=== PATIENT | female | born 1985 | race Caucasian/White ===

== ENCOUNTER 2020-04-29 15:34 | Emergency (ER) | payer OTHER ==
--- NOTE | 2020-04-29 15:48 | EDM.PDOC ---
ED HPI GENERAL MEDICAL PROBLEM - General Chief Complaint: SOCK IRONER Problem Stated Complaint: POSSIBLE KIDNEY STONES Time Seen by Provider: 04/29/20 15:39 Source of Information: Reports: Patient, Other (Concha Acuña) - History of Present Illness INITIAL COMMENTS - FREE TEXT/NARRATIVE: HISTORY AND PHYSICAL: History of present illness: Patient is a G1, P0 35-year-old female who resents emergency room today with concern of possible kidney stone that was sent from her SOCK IRONER's office for further evaluation. I did receive a call from patients OBGYN/Human Factors Scientist, Lluvia Acuña, for concern of possible left sided kidney stone. Patient states she is approximately 22 weeks in gestation and started having left-sided flank pain that began at 6 this morning. Patient states that she has had a history of kidney stones in the past and her symptoms today do feel similar to this. Patient states that she has not vomited but she has not been able to eat or drink since 6 this morning due to nausea. Patient's women's health provider was able to get patient an ultrasound before coming over to the emergency room for further evaluation. Lluvia Acuña states baby did have 150s FHT and "baby looked good" and she was not concerned for premature labor. Patient states that she has not been able to take anything for her symptoms due to nausea but she did try to take Tylenol earlier without relief of symptoms. Patient denies any other associated symptoms or any other symptoms or concerns. Patient denies fever, chills, chest pain, shortness of breath, or cough. Denies headache, neck stiff ness, change in vision, syncope, or near syncope. Denies vomiting, abdominal pain, diarrhea, constipation, or dysuria. Has not noted any blood in urine or stool. Patient has been eating and drinking appropriately. Review of systems: As per history of present illness and below otherwise all systems reviewed and negative. Past medical history: As per history of present illness and as reviewed below otherwise noncont ributory. Surgical history: As per history of present illness and as reviewed below otherwise noncontributory. Social history: See social history for further information Family history: As per history of present illness and as reviewed below otherwise noncontributory. Physical exam: General: Patient is alert, oriented, and in no acute distress. Patient sitting comfortably on exam table. HEENT: Atraumatic, normocephalic, pupils equal and reactive bilaterally, negative for conjunctival pallor or scleral icterus, mucous membranes moist, TMs normal bilaterally, throat clear, neck supple, nontender, trachea midline. No drooling or trismus noted. No meningeal signs. No hot potato voice noted. Lungs: Clear to auscultation, breath sounds equal bilaterally, chest nontender. Heart: S1S2, regular rate and rhythm without overt murmur Abdomen: Soft, nondistended, nontender. Negative for masses or hepatosplenomegaly. Positive for costovertebral tenderness of the left. Pelvis: Stable nontender. Genitourinary: Deferred. Rectal: Deferred. Skin: Intact, warm, dry. No lesions or rashes noted. Extremities: Atraumatic, negative for cords or calf pain. Neurovascular unremarkable. Neuro: Awake, alert, oriented. Cranial nerves II through XII unremarkable. Cerebellum unremarkable. Motor and sensory unremarkable throughout. Exam nonfocal. Notes: FHT at bedside 145. Upon reevaluation of patient she is much more comfortable following therapeutics today. She has not had any episodes of vomiting today in the emergency room. Strict return precautions thoroughly discussed with patient. Discussed the importance for follow up with a primary care provider / womens health provider. Voices understanding and is agreeable to plan of care. Denies any further questions or concerns at this time. Diagnostics: CBC, CMP, UA Therapeutics: NS, Zofran, Morphine Prescription: [place] 5/325 (#3), Zofran, Macrobid Impression: Ureterolithiasis, left Asymptomatic bacteruria during Plan: 1. Take medication as prescribed. You can also use Tylenol instructed for pain and discomfort as this is used safe to use in . 2. Follow-up with your primary care provider / women health provider as discussed. Return to the ED as needed and as discussed. Definitive disposition and diagnosis as appropriate pending reevaluation and review of above. L flank Pain Score (Numeric/FACES): 10 - Related Data Allergies Allergy/AdvReac Type Severity Reaction Status Date / Time Penicillins Allergy Hives Verified 04/29/20 15:46 Home Meds: Home Meds Acetaminophen/HYDROcodone [[place] 325-5 MG] 1 tab PO Q6H #3 tablet 04/29/20 [Rx] Nitrofurantoin Monohyd/M-Cryst [Macrobid 100 mg Capsule] 100 mg PO BID 5 Days #10 capsule 04/29/20 [Rx] Ondansetron [Zofran ODT] 4 mg PO Q6H PRN #8 tab.dis 04/29/20 [Rx] Pnv No.95/Ferrous Fum/Folic AC [ Caplet] 1 cap PO DAILY 04/29/20 [History] ED ROS GENERAL - Review of Systems Review Of Systems: Comprehensive ROS is negative, except as noted in HPI. ED EXAM, GENERAL - Physical Exam Exam: See Below (see dictation) Course - Vital Signs Last Recorded V/S: Last Vital Signs Temp 96.8 F L 04/29/20 15:48 Pulse 90 04/29/20 15:48 Resp 18 04/29/20 15:48 BP 122/70 04/29/20 15:48 Pulse Ox 97 04/29/20 15:48 - Orders/Labs/Meds Orders: Active Orders 24 hr Category Date Time Status Sodium Chloride 0.9% [Saline Flush] Med 04/29/20 15:39 Active 10 ml FLUSH ASDIRECTED PRN Sodium Chloride 0.9% [Saline Flush] Med 04/29/20 15:39 Active 2.5 ml FLUSH ASDIRECTED PRN Saline Lock Insert [OM.PC] Stat Oth 04/29/20 15:39 Ordered Medication Orders Sodium Chloride (Saline Flush) 10 ml FLUSH ASDIRECTED PRN PRN Reason: Keep Vein Open Last Admin: 04/29/20 15:57 Dose: 10 ml Documented by: LEE Sodium Chloride (Saline Flush) 2.5 ml FLUSH ASDIRECTED PRN PRN Reason: Keep Vein Open Last Admin: 04/29/20 15:57 Dose: 2.5 ml Documented by: LEE Labs: Laboratory Tests 04/29/20 04/29/20 04/29/20 Range/Units 15:39 15:42 15:53 WBC 19.38 H (4.0-11.0) K/uL RBC 3.69 L (4.30-5.90) M/uL Hgb 11.6 L (12.0-16.0) g/dL Hct 34.4 L (36.0-46.0) % MCV 93.2 (80.0-98.0) fL MCH 31.4 (27.0-32.0) pg MCHC 33.7 (31.0-37.0) g/dL RDW Std Deviation 42.5 (28.0-62.0) fl RDW Coeff of [place] 13 (11.0-15.0) % Plt Count 229 (150-400) K/uL MPV 11.90 (7.40-12.00) fL Neut % (Auto) 87.5 H (48.0-80.0) % Lymph % (Auto) 7.0 L (16.0-40.0) % [place] % (Auto) 5.3 (0.0-15.0) % Eos % (Auto) 0.1 (0.0-7.0) % Baso % (Auto) 0.1 (0.0-1.5) % Neut # (Auto) 17.0 H (1.4-5.7) K/uL Lymph # (Auto) 1.4 (0.6-2.4) K/uL [place] # (Auto) 1.0 H (0.0-0.8) K/uL Eos # (Auto) 0.0 (0.0-0.7) K/uL Baso # (Auto) 0.0 (0.0-0.1) K/uL Nucleated RBC % 0.0 /100WBC Nucleated RBCs # 0 K/uL Lactate (0.20-2.00) mmol/L Sodium 134 L (136-145) mmol/L Potassium 3.6 (3.5-5.1) mmol/L Chloride 101 (98-107) mmol/L Carbon Dioxide 24.0 (21.0-32.0) mmol/L BUN 7 (7.0-18.0) mg/dL Creatinine 0.7 (0.6-1.0) mg/dL Est Cr Clr Drug Dosing 92.79 mL/min Estimated GFR (MDRD) > 60.0 ml/min Glucose 105 (74-106) mg/dL Calcium 9.3 (8.5-10.1) mg/dL Total Bilirubin 0.2 (0.2-1.0) mg/dL AST 26 (15-37) IU/L ALT 12 L (14-63) IU/L Alkaline Phosphatase 75 (46-116) U/L Total Protein 6.6 (6.4-8.2) g/dL Albumin 3.0 L (3.4-5.0) g/dL Globulin 3.6 (2.6-4.0) g/dL Albumin/Globulin Ratio 0.8 L (0.9-1.6) Urine Color YELLOW Urine Appearance HAZY Urine pH 7.0 (5.0-8.0) Ur Specific [place] 1.010 (1.001-1.035) Urine Protein NEGATIVE (NEGATIVE) mg/dL Urine Glucose (UA) NEGATIVE (NEGATIVE) mg/dL Urine Ketones TRACE H (NEGATIVE) mg/dL Urine Occult Blood TRACE-INTACT H (NEGATIVE) Urine Nitrite NEGATIVE (NEGATIVE) Urine Bilirubin NEGATIVE (NEGATIVE) Urine Urobilinogen 0.2 (<2.0) EU/dL Ur Leukocyte Esterase NEGATIVE (NEGATIVE) Urine RBC 2-6 (0-2/HPF) Urine WBC 0-2 (0-5/HPF) Ur Epithelial Cells RARE (NONE-FEW) Urine Bacteria FEW (NEGATIVE) 04/29/20 Range/Units 16:28 WBC (4.0-11.0) K/uL RBC (4.30-5.90) M/uL Hgb (12.0-16.0) g/dL Hct (36.0-46.0) % MCV (80.0-98.0) fL MCH (27.0-32.0) pg MCHC (31.0-37.0) g/dL RDW Std Deviation (28.0-62.0) fl RDW Coeff of [place] (11.0-15.0) % Plt Count (150-400) K/uL MPV (7.40-12.00) fL Neut % (Auto) (48.0-80.0) % Lymph % (Auto) (16.0-40.0) % [place] % (Auto) (0.0-15.0) % Eos % (Auto) (0.0-7.0) % Baso % (Auto) (0.0-1.5) % Neut # (Auto) (1.4-5.7) K/uL Lymph # (Auto) (0.6-2.4) K/uL [place] # (Auto) (0.0-0.8) K/uL Eos # (Auto) (0.0-0.7) K/uL Baso # (Auto) (0.0-0.1) K/uL Nucleated RBC % /100WBC Nucleated RBCs # K/uL Lactate 0.6 (0.20-2.00) mmol/L Sodium (136-145) mmol/L Potassium (3.5-5.1) mmol/L Chloride (98-107) mmol/L Carbon Dioxide (21.0-32.0) mmol/L BUN (7.0-18.0) mg/dL Creatinine (0.6-1.0) mg/dL Est Cr Clr Drug Dosing mL/min Estimated GFR (MDRD) ml/min Glucose (74-106) mg/dL Calcium (8.5-10.1) mg/dL Total Bilirubin (0.2-1.0) mg/dL AST (15-37) IU/L ALT (14-63) IU/L Alkaline Phosphatase (46-116) U/L Total Protein (6.4-8.2) g/dL Albumin (3.4-5.0) g/dL Globulin (2.6-4.0) g/dL Albumin/Globulin Ratio (0.9-1.6) Urine Color Urine Appearance Urine pH (5.0-8.0) Ur Specific [place] (1.001-1.035) Urine Protein (NEGATIVE) mg/dL Urine Glucose (UA) (NEGATIVE) mg/dL Urine Ketones (NEGATIVE) mg/dL Urine Occult Blood (NEGATIVE) Urine Nitrite (NEGATIVE) Urine Bilirubin (NEGATIVE) Urine Urobilinogen (<2.0) EU/dL Ur Leukocyte Esterase (NEGATIVE) Urine RBC (0-2/HPF) Urine WBC (0-5/HPF) Ur Epithelial Cells (NONE-FEW) Urine Bacteria (NEGATIVE) Meds: Medications Generic Name Dose Route Start Last Admin Trade Name Freq PRN Reason Stop Dose Admin Sodium Chloride 10 ml 04/29/20 15:39 04/29/20 15:57 Saline Flush FLUSH 10 ml ASDIRECTED PRN Administration Keep Vein Open Sodium Chloride 2.5 ml 04/29/20 15:39 04/29/20 15:57 Saline Flush FLUSH 2.5 ml ASDIRECTED PRN Administration Keep Vein Open Discontinued Medications Generic Name Dose Route Start Last Admin Trade Name Freq PRN Reason Stop Dose Admin Sodium Chloride 1,000 mls @ 999 mls/hr 04/29/20 15:48 04/29/20 15:55 Normal Saline IV 04/29/20 16:48 999 mls/hr STAT ONE Administration Morphine Sulfate 4 mg 04/29/20 15:40 04/29/20 15:57 Morphine IVPUSH 04/29/20 15:41 4 mg ONETIME ONE Administration Ondansetron HCl 4 mg 04/29/20 15:39 04/29/20 15:56 Zofran IVPUSH 04/29/20 15:40 4 mg ONETIME ONE Administration Departure - Departure Time of Disposition: 17:17 Disposition: Home, Self-Care 01 Clinical Impression: Ureterolithiasis, Asymptomatic bacteriuria during - Discharge Information Prescriptions: Nitrofurantoin Monohyd/M-Cryst [Macrobid 100 mg Capsule] 100 mg PO BID 5 Days #10 capsule Acetaminophen/HYDROcodone [[place] 325-5 MG] 1 tab PO Q6H #3 tablet Ondansetron [Zofran ODT] 4 mg PO Q6H PRN #8 tab.dis PRN Reason: Nausea/Vomiting Instructions: Kidney Stones, [id number] Referrals: PCP,None [Primary Care Provider] - Forms: ED Department Discharge Additional Instructions: The following information is given to patients seen in the emergency department who are being discharged to home. This information is to outline your options for follow-up care. We provide all patients seen in our emergency department with a follow-up referral. The need for follow-up, as well as the timing and circumstances, are variable depending upon the specifics of your emergency department visit. If you don't have a primary care physician on staff, we will provide you with a referral. We always advise you to contact your personal physician following an emergency department visit to inform them of the circumstance of the visit and for follow-up with them and/or the need for any referrals to a consulting specialist. The emergency department will also refer you to a specialist when appropriate. This referral assures that you have the opportunity for follow-up care with a specialist. All of these measure are taken in an effort to provide you with optimal care, which includes your follow-up. Under all circumstances we always encourage you to contact your private physician who remains a resource for coordinating your care. When calling for follow-up care, please make the office aware that this follow-up is from your recent emergency room visit. If for any reason you are refused follow-up, please contact the [facility] Emergency Department at and asked to speak to the emergency department charge nurse. [facility] [address] [place] [address] [facility] [address] [place] [id number] 1. Take medication as prescribed. You can also use Tylenol instructed for pain and discomfort as this is used safe to use in . 2. Follow-up with your primary care provider / women health provider as discussed. Return to the ED as needed and as discussed. Sepsis Event Note (ED) - Focused Exam Vital Signs: Vital Signs Temp Pulse Resp BP Pulse Ox 04/29/20 15:48 96.8 F L 90 18 122/70 97 - My Orders Last 24 Hours: My Active Orders 04/29/20 15:39 Sodium Chloride 0.9% [Saline Flush] 10 ml FLUSH ASDIRECTED PRN Sodium Chloride 0.9% [Saline Flush] 2.5 ml FLUSH ASDIRECTED PRN Saline Lock Insert [OM.PC] Stat - Assessment/Plan Last 24 Hours: My Active Orders 04/29/20 15:39 Sodium Chloride 0.9% [Saline Flush] 10 ml FLUSH ASDIRECTED PRN Sodium Chloride 0.9% [Saline Flush] 2.5 ml FLUSH ASDIRECTED PRN Saline Lock Insert [OM.PC] Stat
[2020-04-29] MEDS: Sodium Chloride 0.9% 1,000 ML IV ONE (15:55)
[2020-04-29] MEDS: Ondansetron 4 MG/2 ML SDV IVPUSH ONE (15:56)
[2020-04-29] MEDS: Sodium Chloride 0.9% 2.5 ML Syringe FLUSH PRN (15:57)
[2020-04-29] MEDS: Morphine 4 MG/ML Syringe IVPUSH ONE (15:57)
[2020-04-29] MEDS: Sodium Chloride 0.9% 10 ML Syringe FLUSH PRN (15:57)
[2020-04-29 16:25] LABS: BLOOD UREA NITROGEN,BUN 7 mg/dL (7.0-18.0); CHLORIDE,CL 101 mmol/L (98-107); GLUCOSE RANDOM 105 mg/dL (74-106); POTASSIUM,K 3.6 mmol/L (3.5-5.1); SODIUM,NA 134 mmol/L (136-145)
== END 2020-04-29 17:30 | disposition home or self-care (01) ==
LOC: MW.ED 15:34
DX: O99.891 Other specified diseases and conditions complicating pregnancy (principal); N20.1 Calculus of ureter; R82.71 Bacteriuria; Z3A.22 22 weeks gestation of pregnancy; Z88.0 Allergy status to penicillin
CPT/HCPCS: 36415; 80053; 81001; 83605; 85025; 96374; 96375; 99283; 99284-25; J2270; J2405; J7030

== ENCOUNTER 2020-08-23 10:23 | Observation (INO) | payer MEDICAID, OTHER ==
[2020-08-23] MEDS ORDERED: Nalbuphine 10 MG/1 ML Vial IVPUSH PRN (10:51)
[2020-08-23] MEDS ORDERED: Misoprostol 200 MCG Tab PO PRN (10:51)
[2020-08-23] MEDS ORDERED: Sodium Chloride 0.9% 10 ML SDV IV PRN (10:51)
[2020-08-23] MEDS ORDERED: Butorphanol 1 MG/ML SDV IVPUSH PRN (10:51)
[2020-08-23] MEDS ORDERED: Water For Irrigation,Sterile 1,000 ML Container IRR PRN (10:51)
[2020-08-23] MEDS ORDERED: Sodium Chloride 0.9% 10 ML Syringe FLUSH PRN (10:51)
[2020-08-23] MEDS ORDERED: Lidocaine 1% 50 ML MDV INJECT PRN (10:51)
[2020-08-23] MEDS ORDERED: Sodium Chloride 0.9% 2.5 ML Syringe FLUSH PRN (10:51)
[2020-08-23] MEDS ORDERED: Tranexamic Acid 1,000 MG in Sodium Chloride 0.9% 100 ML IV PRN (10:51)
[2020-08-23] MEDS ORDERED: Carboprost Tromethamine 250 MCG/1 ML Amp IM PRN (10:51)
[2020-08-23] MEDS ORDERED: Methylergonovine 0.2 MG/1 ML Amp IM PRN (10:51)
[2020-08-23] MEDS ORDERED: Terbutaline 1 MG/ML SDV SUBCUT PRN (10:51)
[2020-08-23] MEDS ORDERED: Lactated Ringers 1,000 ML IV SCH (11:00)
[2020-08-23] MEDS ORDERED: Oxytocin/0.9 % Sodium Chloride 30 UNIT/500 ML BAG IV SCH ×2 (11:00)
[2020-08-23] MEDS ORDERED: Misoprostol 25 MCG (1/4 of 100 MCG) Tab VAG PRN ×2 (11:30→15:30)
[2020-08-23] MEDS ORDERED: Misoprostol 25 MCG (1/4 of 100 MCG) Tab PO PRN ×2 (11:30→15:30)
--- NOTE | 2020-08-23 12:47 | PCM.LDHP ---
L&D History of Present Illness - General Date of Service: 08/23/20 Admit Problem/Dx: Patient Status Order with Admit Dx/Problem 08/23/20 10:51 Patient Status [ADT] Routine Admission Diagnosis/Problem Admission Diagnosis/Problem 08/23/20 12:32 at 38 6/7 weeks (SHADI: 08/31/20 by early ultrasound) presenting to L&D from clinic for induction of labor with progressively increasing BPs (150/100 in office this AM) and reports of vision changes (diplopia and "floaters"). B+, Rubella immune, GBS negative. notable for uterine size date discrepancy (fundal height < dates); however, consistent equal growth has been demonstrated and the most recent growth ultrasound on 08/18/20 noted EFW 3087 (25th percentile). VE in-office noted cervix was long, thick, and closed; vertex by Taj's. 08/23/20 12:48 Source of Information: Patient History Limitations: Reports: No Limitations - Related Data Allergies/Adverse Reactions: Allergies Allergy/AdvReac Type Severity Reaction Status Date / Time Penicillins Allergy Hives Verified 04/29/20 15:46 Home Medications: Home Meds Acetaminophen/HYDROcodone [[facility] 325-5 MG] 1 tab PO Q6H #3 tablet 04/29/20 [Rx] Nitrofurantoin Monohyd/M-Cryst [Macrobid 100 mg Capsule] 100 mg PO BID 5 Days #10 capsule 04/29/20 [Rx] Ondansetron [Zofran ODT] 4 mg PO Q6H PRN #8 tab.dis 04/29/20 [Rx] Pnv No.95/Ferrous Fum/Folic AC [ Caplet] 1 cap PO DAILY 04/29/20 [History] Past Medical History - Infectious Disease History Infectious Disease History: Reports: Chicken Pox - Past Surgical History HEENT Surgical History: Reports: Naso-Sinus Surgery Social & Family History - Family History Family Medical History: No Pertinent Family History - Caffeine Use Caffeine Use: Reports: Tea H&P Review of Systems - Review of Systems: Review Of Systems: See Below General: Reports: No Symptoms HEENT: Reports: No Symptoms Pulmonary: Reports: No Symptoms Cardiovascular: Reports: No Symptoms Gastrointestinal: Reports: No Symptoms Genitourinary: Reports: No Symptoms Musculoskeletal: Reports: No Symptoms Skin: Reports: No Symptoms Psychiatric: Reports: No Symptoms Neurological: Reports: No Symptoms Hematologic/Lymphatic: Reports: No Symptoms Immunologic: Reports: No Symptoms L&D Exam - Exam Exam: See Below - OB Specific Heart Tones: Present - Watts Score Watts Score Cervix Position: Posterior Watts Score Consistency: Firm Watts Score Effacement: 0-30% Watts Score Dilation: Closed Watts Score Infant's Station: -3 Watts Score Total: 0 - Exam General: Alert, Oriented, Cooperative Neck: Carotid Bruit Cardiovascular: Regular Rate, Regular Rhythm GI/Abdominal Exam: Soft, Non-Tender Rectal Exam: Deferred Genitourinary: Deferred Back Exam: Normal Inspection, Full Range of Motion Extremities: Normal Inspection, Normal Range of Motion, Non-Tender, Normal Capil arnold Refill Skin: Warm, Dry, Intact Neurological: Strength Equal Bilateral, Normal Gait, Normal Speech, Normal Tone, Sensation Intact Psychiatric: Alert, Normal Affect, Normal Mood - Patient Data Lab Results Last 24 hrs: Laboratory Results - last 24 hr 08/23/20 08/23/20 Range/Units 10:15 10:15 Urine Color YELLOW Urine Appearance CLEAR Urine pH 7.0 (5.0-8.0) Ur Specific [place] 1.010 (1.001-1.035) Urine Protein NEGATIVE (NEGATIVE) mg/dL Urine Glucose (UA) NEGATIVE (NEGATIVE) mg/dL Urine Ketones NEGATIVE (NEGATIVE) mg/dL Urine Occult Blood NEGATIVE (NEGATIVE) Urine Nitrite NEGATIVE (NEGATIVE) Urine Bilirubin NEGATIVE (NEGATIVE) Urine Urobilinogen 0.2 (<2.0) EU/dL Ur Leukocyte Esterase NEGATIVE (NEGATIVE) Urine RBC 0-2 (0-2/HPF) Urine WBC 0-2 (0-5/HPF) Ur Epithelial Cells FEW (NONE-FEW) Urine Bacteria FEW (NEGATIVE) Urine Mucus LIGHT (NONE-MOD) SARS-CoV-2 RNA (TAMMY) NEGATIVE (NEGATIVE) - Problem List (1) Advanced maternal age during , antepartum SNOMED Code(s): 305564251 ICD Code: [id number] - Status: Acute Priority: High Current Visit: Yes (2) Supervision of normal IUP (intrauterine ) in primigravida SNOMED Code(s): 62032119, 899970828, 001158585, 440621921 ICD Code: Z34.00 - ENCNTR FOR SUPRVSN OF NORMAL FIRST , UNSP TRIMESTER Status: Acute Priority: High Current Visit: Yes Qualifiers: Trimester: third trimester Qualified Code(s): Z34.03 - Encounter for supervision of normal first , third trimester Problem List Initiated/Reviewed/Updated: Yes Orders Last 24hrs: Active Orders 24 hr Category Date Time Status Patient Status [ADT] Routine ADT 08/23/20 10:51 Active Bedrest Bathroom Privileges [RC] ASDIRECTED Care 08/23/20 10:51 Active Bedrest [RC] ASDIRECTED Care 08/23/20 10:51 Active Communication Order [RC] ASDIRECTED Care 08/23/20 10:51 Active Communication Order [RC] ASDIRECTED Care 08/23/20 10:51 Active Communication Order [RC] ASDIRECTED Care 08/23/20 10:51 Active Communication Order [RC] PRN Care 08/23/20 10:51 Active Communication Order [RC] PRN Care 08/23/20 10:51 Active Equipment to Bedside [RC] PRN Care 08/23/20 10:51 Active Heart Tones [RC] ASDIRECTED Care 08/23/20 10:52 Active Heart Tones [RC] CONTINUOUS Care 08/23/20 10:51 Active Non Stress Test [RC] PER UNIT ROUTINE Care 08/23/20 10:51 Active Height and Weight [RC] DAILY Care 08/23/20 10:51 Active Intake and Output [RC] QSHIFT Care 08/23/20 10:51 Active May Shower [RC] ASDIRECTED Care 08/23/20 10:51 Active Notify Provider Status Change [RC] ASDIRECTED Care 08/23/20 10:55 Active Notify Provider [RC] PRN Care 08/23/20 10:51 Active Notify Provider [RC] PRN Care 08/23/20 10:51 Active Notify Provider [RC] PRN Care 08/23/20 10:51 Active Notify Provider [RC] PRN Care 08/23/20 10:51 Active Notify Provider [RC] STAT Care 08/23/20 10:51 Active Oxygen Therapy [RC] ASDIRECTED Care 08/23/20 10:51 Active Oxygen Therapy [RC] PRN Care 08/23/20 10:51 Active Peripheral IV Care [RC] PRN Care 08/23/20 10:51 Active Up ad Klaudia [RC] ASDIRECTED Care 08/23/20 10:51 Active Vaginal Exam [RC] PRN Care 08/23/20 10:51 Active Vaginal Exam [RC] PRN Care 08/23/20 10:51 Active Vital Signs [RC] ASDIRECTED Care 08/23/20 10:51 Active Vital Signs [RC] PER UNIT ROUTINE Care 08/23/20 10:51 Active Vital Signs [RC] PER UNIT ROUTINE Care 08/23/20 10:51 Active Regular Diet [DIET] Diet 08/23/20 Lunch Active Regular Diet [DIET] Diet 08/23/20 Lunch Active CBC W/O DIFF,HEMOGRAM [HEME] Routine Lab 08/23/20 10:51 Ordered COMPREHENSIVE METABOLIC PN,CMP [CHEM] Routine Lab 08/23/20 10:51 Ordered RPR (SYPHILIS SERO) W/ RFLX [REF] Routine Lab 08/23/20 10:51 Ordered TYPE AND SCREEN [BBK] Routine Lab 08/23/20 10:51 Ordered URIC ACID [CHEM] Routine Lab 08/23/20 10:51 Ordered Butorphanol [Stadol] Med 08/23/20 10:51 Active 1 mg IVPUSH Q1H PRN Carboprost Tromethamine [Hemabate DS] Med 08/23/20 10:51 Active 250 mcg IM ASDIRECTED PRN Lactated Ringers [Ringers, Lactated] 1,000 ml Med 08/23/20 11:00 Active IV ASDIRECTED Lidocaine 1% [Xylocaine 1%] Med 08/23/20 10:51 Active 50 ml INJECT ONETIME PRN Methylergonovine [Methergine] Med 08/23/20 10:51 Active 0.2 mg IM ASDIRECTED PRN Nalbuphine [Nubain] Med 08/23/20 10:51 Active 10 mg IVPUSH Q1H PRN Oxytocin/0.9 % Sodium Chloride [Oxytocin 30 Unit/500 ML Med 08/23/20 11:00 Active -NS] 30 unit in 500 ml IV TITRATE Oxytocin/0.9 % Sodium Chloride [Oxytocin 30 Unit/500 ML Med 08/23/20 11:00 Active -NS] 30 unit in 500 ml IV TITRATE Sodium Chloride 0.9% [Normal Saline] Med 08/23/20 10:51 Active 10 ml IV ASDIRECTED PRN Sodium Chloride 0.9% [Saline Flush] Med 08/23/20 10:51 Active 10 ml FLUSH ASDIRECTED PRN Sodium Chloride 0.9% [Saline Flush] Med 08/23/20 10:51 Active 2.5 ml FLUSH ASDIRECTED PRN Terbutaline [Brethine] Med 08/23/20 10:51 Active 0.25 mg SUBCUT ASDIRECTED PRN Tranexamic Acid [Cyklokapron] 1,000 mg Med 08/23/20 10:51 Active Sodium Chloride 0.9% [Normal Saline] 100 ml IV ONETIME Water For Irrigation,Sterile [Sterile Water for Med 08/23/20 10:51 Active Irrigation] 1,000 ml IRR ASDIRECTED PRN miSOPROStoL [Cytotec] Med 08/23/20 10:51 Active 200 mcg PO ONETIME PRN miSOPROStoL [Cytotec] Med 08/23/20 11:30 Active 25 mcg PO ONETIME PRN miSOPROStoL [Cytotec] Med 08/23/20 15:30 Active 25 mcg PO Q4H PRN miSOPROStoL [Cytotec] Med 08/23/20 11:30 Active 25 mcg VAG ONETIME PRN miSOPROStoL [Cytotec] Med 08/23/20 15:30 Active 25 mcg VAG Q4H PRN Deep Tendon Reflexes [WOMSER] Q1H Ot 08/23/20 11:00 Ordered Deep Tendon Reflexes [WOMSER] Q1H Ot 08/23/20 12:00 Ordered Deep Tendon Reflexes [WOMSER] Q1H [facility] 08/23/20 13:00 Ordered Deep Tendon Reflexes [WOMSER] Q1 Ot 08/23/20 14:00 Ordered Deep Tendon Reflexes [WOMSER] Q1H Ot 08/23/20 15:00 Ordered Deep Tendon Reflexes [WOMSER] Q1H Ot 08/23/20 16:00 Ordered Deep Tendon Reflexes [WOMSER] Q1H Ot 08/23/20 17:00 Ordered Deep Tendon Reflexes [WOMSER] Q1H Ot 08/23/20 18:00 Ordered Deep Tendon Reflexes [WOMSER] Q1H Ot 08/23/20 19:00 Ordered Deep Tendon Reflexes [WOMSER] Q1H Ot 08/23/20 20:00 Ordered Deep Tendon Reflexes [WOMSER] Q1H Ot 08/23/20 21:00 Ordered Deep Tendon Reflexes [WOMSER] Q1H Ot 08/23/20 22:00 Ordered Deep Tendon Reflexes [WOMSER] Q1H Ot 08/23/20 23:00 Ordered Deep Tendon Reflexes [WOMSER] Q1H Ot 08/24/20 00:00 Ordered Deep Tendon Reflexes [WOMSER] Q1H Ot 08/24/20 01:00 Ordered Deep Tendon Reflexes [WOMSER] Q1H Ot 08/24/20 02:00 Ordered Deep Tendon Reflexes [WOMSER] Q1 Ot 08/24/20 03:00 Ordered Deep Tendon Reflexes [WOMSER] Q1 Ot 08/24/20 04:00 Ordered Deep Tendon Reflexes [WOMSER] Q1 Ot 08/24/20 05:00 Ordered Deep Tendon Reflexes [WOMSER] Q1 Ot 08/24/20 06:00 Ordered Deep Tendon Reflexes [WOMSER] Q1 Ot 08/24/20 07:00 Ordered Deep Tendon Reflexes [WOMSER] Q1 Ot 08/24/20 08:00 Ordered Deep Tendon Reflexes [WOMSER] Q1 Ot 08/24/20 09:00 Ordered Deep Tendon Reflexes [WOMSER] Q1 Ot 08/24/20 10:00 Ordered Electronic Heart Tones Ext w TOCO [WOMSER] Per Ot 08/23/20 10:51 Ordered Unit Routine Scalp Electrode [WOMSER] Per Unit Routine Ot 08/23/20 10:51 Ordered Medication Administration Instruction [OM.PC] Q3H Ot 08/23/20 11:00 Ordered Peripheral IV Insertion Adult [OM.PC] Routine Oth 08/23/20 10:51 Ordered Peripheral IV Insertion Adult [OM.PC] Routine Ot 08/23/20 10:51 Ordered Resuscitation Status Routine Resus Stat 08/23/20 10:51 Ordered Medication Orders Butorphanol Tartrate (Butorphanol 1 Mg/Ml Sdv) 1 mg IVPUSH Q1H PRN PRN Reason: Pain Carboprost Tromethamine (Carboprost Tromethamine 250 Mcg/1 Ml Amp) 250 mcg IM ASDIRECTED PRN PRN Reason: Post Hemorrhage Oxytocin/Sodium Chloride (Oxytocin 30 Unit/500 Ml-Ns) 30 unit in 500 mls @ 2 mls/hr IV TITRATE MASSIMO; Protocol Lactated Ringer's (Ringers, Lactated) 1,000 mls @ 150 mls/hr IV ASDIRECTED MASSIMO Oxytocin/Sodium Chloride (Oxytocin 30 Unit/500 Ml-Ns) 30 unit in 500 mls @ 999 mls/hr IV TITRATE MASSIMO Tranexamic Acid 1,000 mg/ (Sodium Chloride) 110 mls @ 660 mls/hr IV ONETIME PRN PRN Reason: Bleeding Lidocaine HCl (Lidocaine 1% 50 Ml Mdv) 50 ml INJECT ONETIME PRN PRN Reason: Laceration repair Methylergonovine Maleate (Methylergonovine 0.2 Mg/1 Ml Amp) 0.2 mg IM ASDIRECTED PRN PRN Reason: Post Hemorrhage Misoprostol (Misoprostol 25 Mcg (1/4 Of 100 Mcg) Tab) 25 mcg PO Q4H PRN PRN Reason: Cervical Ripening Misoprostol (Misoprostol 25 Mcg (1/4 Of 100 Mcg) Tab) 25 mcg VAG ONETIME PRN PRN Reason: Cervical Ripening Misoprostol (Misoprostol 25 Mcg (1/4 Of 100 Mcg) Tab) 25 mcg VAG Q4H PRN PRN Reason: Cervical Ripening Misoprostol (Misoprostol 200 Mcg Tab) 200 mcg PO ONETIME PRN PRN Reason: Post Hemorrhage Misoprostol (Misoprostol 25 Mcg (1/4 Of 100 Mcg) Tab) 25 mcg PO ONETIME PRN PRN Reason: Cervical Ripening Nalbuphine HCl (Nalbuphine 10 Mg/1 Ml Vial) 10 mg IVPUSH Q1H PRN PRN Reason: Pain (severe 7-10) Sodium Chloride (Sodium Chloride 0.9% 10 Ml Syringe) 10 ml FLUSH ASDIRECTED PRN PRN Reason: Keep Vein Open Sodium Chloride (Sodium Chloride 0.9% 2.5 Ml Syringe) 2.5 ml FLUSH ASDIRECTED PRN PRN Reason: Keep Vein Open Sodium Chloride (Sodium Chloride 0.9% 10 Ml Sdv) 10 ml IV ASDIRECTED PRN PRN Reason: IV Use Sterile Water (Water For Irrigation,Sterile 1,000 Ml Container) 1,000 ml IRR ASDIRECTED PRN PRN Reason: delivery Terbutaline Sulfate (Terbutaline 1 Mg/Ml Sdv) 0.25 mg SUBCUT ASDIRECTED PRN PRN Reason: Tacysystole Assessment/Plan Comment:: Admit A: at 38 6/7 weeks (SHADI: 08/31/20 by early ultrasound) presenting to L&D from clinic for induction of labor with progressively increasing BPs (150/100 in office this AM) and reports of vision changes (diplopia and "floaters"). B+, Rubella immune, GBS negative. notable for uterine size date discrepancy (fundal height < dates); however, consistent equal growth has been demonstrated and the most recent growth ultrasound on 08/18/20 noted EFW [id number] (25th percentile). VE in-office noted cervix was long, thick, and closed; vertex by Taj's. P: Anticipated ; cytotec to pitocin; epidural PRN; Dr. Braun updated.
--- NOTE | 2020-08-23 14:23 | PCM.DCSUM1 ---
Discharge Summary - Hospital Course Free Text/Narrative:: Discharge home. Follow up in the clinic on 08/30/20 @ 0930; sooner, if needed. Start hydroxyzine 50 mg PRN for anxiety. Diagnosis: Stroke: No Modified Mellen Scale: No Symptoms at All Modified Torri Scale Score: 0 - Discharge Data Discharge Date: 08/23/20 Discharge Disposition: Admitted As Inpatient 66 Condition: Good - Referral to Home Health Primary Care Physician: Concha Jama CNM, [employer] - Discharge Diagnosis/Problem(s) (1) Advanced maternal age during , antepartum SNOMED Code(s): 530498084 ICD Code: NLK5279 - Status: Acute Priority: High Current Visit: Yes (2) Supervision of normal IUP (intrauterine ) in primigravida SNOMED Code(s): 27186546, 117894050, 139722683, 540166598 ICD Code: Z34.00 - ENCNTR FOR SUPRVSN OF NORMAL FIRST , UNSP TRIMESTER Status: Acute Priority: High Current Visit: Yes Qualifiers: Trimester: third trimester Qualified Code(s): Z34.03 - Encounter for supervision of normal first , third trimester - Patient Instructions Diet: Regular Diet as Tolerated, Drink 8-10+ Glasses/Day Activity: As Tolerated, No Strenuous Activities, Rest and Relax Today Driving: May Drive Today Showering/Bathing: May Shower - Discharge Plan *PRESCRIPTION DRUG MONITORING PROGRAM REVIEWED*: Not Applicable *COPY OF PRESCRIPTION DRUG MONITORING REPORT IN PATIENT RASHEL: Not Applicable Home Medications: Home Meds Acetaminophen/HYDROcodone [[facility] 325-5 MG] 1 tab PO Q6H #3 tablet 04/29/20 [Rx] Nitrofurantoin Monohyd/M-Cryst [Macrobid 100 mg Capsule] 100 mg PO BID 5 Days #10 capsule 04/29/20 [Rx] Ondansetron [Zofran ODT] 4 mg PO Q6H PRN #8 tab.dis 04/29/20 [Rx] Pnv No.95/Ferrous Fum/Folic AC [ Caplet] 1 cap PO DAILY 04/29/20 [History] Oxygen Therapy Mode: Room Air - Discharge Summary/Plan Comment DC Time >30 min.: No - General Info Date of Service: 08/23/20 Admission Dx/Problem (Free Text: Patient Status Order with Admit Dx/Problem 08/23/20 10:51 Patient Status [ADT] Routine Admission Diagnosis/Problem Admission Diagnosis/Problem 08/23/20 12:32 at 38 6/7 weeks (SHADI: 08/31/20 by early ultrasound) presenting to L&D from clinic for induction of labor with progressively increasing BPs (150/100 in office this AM) and reports of vision changes (diplopia and "floaters"). B+, Rubella immune, GBS negative. notable for uterine size date discrepancy (fundal height < dates); however, consistent equal growth has been demonstrated and the most recent growth ultrasound on 08/18/20 noted EFW 3087 (25th percentile). VE in-office noted cervix was long, thick, and closed; vertex by Taj's. 08/23/20 12:48 Subjective Update: Upon presentation to L&D, patient has exhibited BPs WNL or very near; not the elevation noted earlier in-office. She has experienced no vision changes or other symptoms. Patient lab results are WNL and upon further discussion, it is suspected the elevated BP is anxiety-related. Patient reports she is a very anxious individual (treated earlier in with hydroxyzine) and has been getting more so as her due date nears. After discussion with Dr. Braun, we have decided to give the patient the choice to stay for induction or return home and wait for labor to start on its own, reporting any changes in symptoms as necessary. Patient has decided to return home. Clear instructions regarding warning signs/symptoms preeclampsia provided. Methods for managing anxiety also discussed. Prescription for hydroxyzine 50 mg q6h PRN sent to [facility]. Patient verbalizes understanding and is agreeable with plan of care. Functional Status: Reports: Pain Controlled - Review of Systems General: Reports: No Symptoms HEENT: Reports: No Symptoms Pulmonary: Reports: No Symptoms Cardiovascular: Reports: No Symptoms Gastrointestinal: Reports: No Symptoms Genitourinary: Reports: No Symptoms Musculoskeletal: Reports: No Symptoms Skin: Reports: No Symptoms Neurological: Reports: No Symptoms Psychiatric: Reports: No Symptoms - Patient Data Lab Results - Last 24 hrs: Laboratory Results - last 24 hr 08/23/20 08/23/20 08/23/20 Range/Units 10:15 10:15 13:18 WBC 12.28 H (4.0-11.0) K/uL RBC 4.03 L (4.30-5.90) M/uL Hgb 13.0 (12.0-16.0) g/dL Hct 38.0 (36.0-46.0) % MCV 94.3 (80.0-98.0) fL MCH 32.3 H (27.0-32.0) pg MCHC 34.2 (31.0-37.0) g/dL RDW Std Deviation 44.3 (28.0-62.0) fl RDW Coeff of [place] 13 (11.0-15.0) % Plt Count 197 (150-400) K/uL MPV 12.90 H (7.40-12.00) fL Nucleated RBC % 0.0 /100WBC Nucleated RBCs # 0 K/uL Urine Color YELLOW Urine Appearance CLEAR Urine pH 7.0 (5.0-8.0) Ur Specific [place] 1.010 (1.001-1.035) Urine Protein NEGATIVE (NEGATIVE) mg/dL Urine Glucose (UA) NEGATIVE (NEGATIVE) mg/dL Urine Ketones NEGATIVE (NEGATIVE) mg/dL Urine Occult Blood NEGATIVE (NEGATIVE) Urine Nitrite NEGATIVE (NEGATIVE) Urine Bilirubin NEGATIVE (NEGATIVE) Urine Urobilinogen 0.2 (<2.0) EU/dL Ur Leukocyte Esterase NEGATIVE (NEGATIVE) Urine RBC 0-2 (0-2/HPF) Urine WBC 0-2 (0-5/HPF) Ur Epithelial Cells FEW (NONE-FEW) Urine Bacteria FEW (NEGATIVE) Urine Mucus LIGHT (NONE-MOD) SARS-CoV-2 RNA (TAMMY) NEGATIVE (NEGATIVE) Med Orders - Current: Current Medications Butorphanol Tartrate (Butorphanol 1 Mg/Ml Sdv) 1 mg IVPUSH Q1H PRN PRN Reason: Pain Carboprost Tromethamine (Carboprost Tromethamine 250 Mcg/1 Ml Amp) 250 mcg IM ASDIRECTED PRN PRN Reason: Post Hemorrhage Oxytocin/Sodium Chloride (Oxytocin 30 Unit/500 Ml-Ns) 30 unit in 500 mls @ 2 mls/hr IV TITRATE MASSIMO; Protocol Lactated Ringer's (Ringers, Lactated) 1,000 mls @ 150 mls/hr IV ASDIRECTED MASSIMO Oxytocin/Sodium Chloride (Oxytocin 30 Unit/500 Ml-Ns) 30 unit in 500 mls @ 999 mls/hr IV TITRATE MASSIMO Tranexamic Acid 1,000 mg/ (Sodium Chloride) 110 mls @ 660 mls/hr IV ONETIME PRN PRN Reason: Bleeding Lidocaine HCl (Lidocaine 1% 50 Ml Mdv) 50 ml INJECT ONETIME PRN PRN Reason: Laceration repair Methylergonovine Maleate (Methylergonovine 0.2 Mg/1 Ml Amp) 0.2 mg IM ASDIRECTED PRN PRN Reason: Post Hemorrhage Misoprostol (Misoprostol 25 Mcg (1/4 Of 100 Mcg) Tab) 25 mcg PO Q4H PRN PRN Reason: Cervical Ripening Misoprostol (Misoprostol 25 Mcg (1/4 Of 100 Mcg) Tab) 25 mcg VAG ONETIME PRN PRN Reason: Cervical Ripening Misoprostol (Misoprostol 25 Mcg (1/4 Of 100 Mcg) Tab) 25 mcg VAG Q4H PRN PRN Reason: Cervical Ripening Misoprostol (Misoprostol 200 Mcg Tab) 200 mcg PO ONETIME PRN PRN Reason: Post Hemorrhage Misoprostol (Misoprostol 25 Mcg (1/4 Of 100 Mcg) Tab) 25 mcg PO ONETIME PRN PRN Reason: Cervical Ripening Nalbuphine HCl (Nalbuphine 10 Mg/1 Ml Vial) 10 mg IVPUSH Q1H PRN PRN Reason: Pain (severe 7-10) Sodium Chloride (Sodium Chloride 0.9% 10 Ml Syringe) 10 ml FLUSH ASDIRECTED PRN PRN Reason: Keep Vein Open Sodium Chloride (Sodium Chloride 0.9% 2.5 Ml Syringe) 2.5 ml FLUSH ASDIRECTED PRN PRN Reason: Keep Vein Open Sodium Chloride (Sodium Chloride 0.9% 10 Ml Sdv) 10 ml IV ASDIRECTED PRN PRN Reason: IV Use Sterile Water (Water For Irrigation,Sterile 1,000 Ml Container) 1,000 ml IRR ASDIRECTED PRN PRN Reason: delivery Terbutaline Sulfate (Terbutaline 1 Mg/Ml Sdv) 0.25 mg SUBCUT ASDIRECTED PRN PRN Reason: Tacysystole - Exam General: Reports: Alert, Oriented, Cooperative, No Acute Distress Lungs: Reports: Normal Respiratory Effort Cardiovascular: Reports: Regular Rate, Regular Rhythm GI/Abdominal Exam: Soft, Non-Tender (Female) Exam: Deferred Rectal (Female) Exam: Deferred Back Exam: Reports: Full Range of Motion Extremities: Normal Inspection, Normal Range of Motion, Non-Tender, Normal Capillary Refill Skin: Reports: Warm, Dry, Intact Psy/Mental Status: Reports: Alert, Normal Affect, Normal Mood
[2020-08-23 14:26] LABS: BLOOD UREA NITROGEN,BUN 9 mg/dL (7.0-18.0); CARBON DIOXIDE,CO2 23.8 mmol/L (21.0-32.0); CHLORIDE,CL 105 mmol/L (98-107); GLUCOSE RANDOM 127 mg/dL (74-106); POTASSIUM,K 3.9 mmol/L (3.5-5.1); SODIUM,NA 141 mmol/L (136-145)
== END 2020-08-23 15:10 | disposition critical access hospital (66) ==
LOC: MW.OBCHECK 10:23 → MW.OB 10:27 → MW.OBCHECK 10:50 → MW.OB 10:51
PROVIDERS: ADMIT Obstetrics & Gynecology; ATTEND Nurse Practitioner Women's Health
DX: O13.3 Gestational [pregnancy-induced] hypertension without significant proteinuria, third trimester (principal); Z3A.38 38 weeks gestation of pregnancy; Z20.822 Contact with and (suspected) exposure to COVID-19; Z88.0 Allergy status to penicillin
CPT/HCPCS: 59025; 80053; 81001; 84550; 85027; 86592; 86850; 86900; 86901; 87635; J7120; G0378; U0002

== ENCOUNTER 2020-09-07 13:11 | Inpatient (IN) | payer MEDICAID, OTHER ==
[2020-09-07] MEDS ORDERED: Tranexamic Acid 1,000 MG in Sodium Chloride 0.9% 100 ML IV PRN (15:31)
[2020-09-07] MEDS ORDERED: Carboprost Tromethamine 250 MCG/1 ML Amp IM PRN (15:31)
[2020-09-07] MEDS ORDERED: Butorphanol 1 MG/ML SDV IVPUSH PRN (15:31)
[2020-09-07] MEDS ORDERED: Sodium Chloride 0.9% 10 ML SDV IV PRN (15:31)
[2020-09-07] MEDS ORDERED: Sodium Chloride 0.9% 10 ML Syringe FLUSH PRN (15:31)
[2020-09-07] MEDS ORDERED: Water For Irrigation,Sterile 1,000 ML Container IRR PRN (15:31)
[2020-09-07] MEDS ORDERED: Methylergonovine 0.2 MG/1 ML Amp IM PRN (15:31)
[2020-09-07] MEDS ORDERED: Misoprostol 200 MCG Tab PO PRN (15:31)
[2020-09-07] MEDS ORDERED: Sodium Chloride 0.9% 2.5 ML Syringe FLUSH PRN (15:31)
[2020-09-07] MEDS ORDERED: Lidocaine 1% 50 ML MDV INJECT PRN (15:31)
[2020-09-07] MEDS ORDERED: Nalbuphine 10 MG/1 ML Vial IVPUSH PRN (15:31)
--- NOTE | 2020-09-07 15:33 | PCM.LDHP ---
L&D History of Present Illness - General Date of Service: 09/07/20 Admit Problem/Dx: Admission Diagnosis/Problem Admission Diagnosis/Problem Source of Information: Patient History Limitations: Reports: No Limitations - History of Present Illness Improves with: Reports: None Worsens with: Reports: None Associated Symptoms: Reports: N - Related Data Allergies/Adverse Reactions: Allergies Allergy/AdvReac Type Severity Reaction Status Date / Time Penicillins Allergy Hives Verified 04/29/20 15:46 Home Medications: Home Meds Acetaminophen/HYDROcodone [[place] 325-5 MG] 1 tab PO Q6H #3 tablet 04/29/20 [Rx] Nitrofurantoin Monohyd/M-Cryst [Macrobid 100 mg Capsule] 100 mg PO BID 5 Days #10 capsule 04/29/20 [Rx] Ondansetron [Zofran ODT] 4 mg PO Q6H PRN #8 tab.dis 04/29/20 [Rx] Pnv No.95/Ferrous Fum/Folic AC [ Caplet] 1 cap PO DAILY 04/29/20 [History] Past Medical History - Infectious Disease History Infectious Disease History: Reports: Chicken Pox - Past Surgical History HEENT Surgical History: Reports: Naso-Sinus Surgery Social & Family History - Family History Family Medical History: No Pertinent Family History - Caffeine Use Caffeine Use: Reports: Tea H&P Review of Systems - Review of Systems: Review Of Systems: See Below General: Reports: No Symptoms HEENT: Reports: No Symptoms Pulmonary: Reports: No Symptoms Cardiovascular: Reports: No Symptoms Gastrointestinal: Reports: No Symptoms Genitourinary: Reports: No Symptoms Musculoskeletal: Reports: No Symptoms Skin: Reports: No Symptoms Psychiatric: Reports: No Symptoms Neurological: Reports: No Symptoms Hematologic/Lymphatic: Reports: No Symptoms Immunologic: Reports: No Symptoms L&D Exam - Exam Exam: See Below - Vital Signs Weight: 63.957 kg - OB Specific Contraction Intensity: Moderate Movement: Active Heart Tones: Present Presentation: Vertex - Watts Score Watts Score Cervix Position: Anterior Watts Score Consistency: Soft Watts Score Effacement: >80% Watts Score Dilation: 3-4 cm Watts Score Infant's Station: -2 Watts Score Total: 10 - Exam General: Alert, Oriented HEENT: PERRLA, Conjunctiva Clear, EACs Clear, EOMI, Hearing Intact, Mucosa Moist & [place], Nares Patent, Normal Nasal Septum, Posterior Pharynx Clear, TMs Clear Neck: Supple, Trachea Midline Lungs: Clear to Auscultation, Normal Respiratory Effort Cardiovascular: Regular Rate, Regular Rhythm GI/Abdominal Exam: Normal Bowel Sounds, Soft, Non-Tender, No Organomegaly, No Distention, No Abnormal Bruit, No Mass, Pelvis Stable Rectal Exam: Normal Exam, Normal Rectal Tone Genitourinary: Normal external exam, Normal bimanual exam, Normal speculum exam Back Exam: Normal Inspection, Full Range of Motion Extremities: Normal Inspection, Normal Range of Motion, Non-Tender, No Pedal Edema, Normal Capillary Refill Skin: Warm, Dry, Intact Neurological: Cranial Nerves Intact, Reflexes Equal Bilateral Psychiatric: Alert, Normal Affect, Normal Mood Problem List Initiated/Reviewed/Updated: Yes Assessment/Plan Comment:: 41wks in early active labor.
[2020-09-07] MEDS ORDERED: Oxytocin/0.9 % Sodium Chloride 30 UNIT/500 ML BAG IV SCH (15:45)
[2020-09-07] MEDS: Lactated Ringers 1,000 ML IV SCH ×3 (16:30→21:23)
[2020-09-07] MEDS ORDERED: Ropivacaine 0.2% PF 2 MG/ML 20 ML SDV ONE (16:59)
[2020-09-07] MEDS ORDERED: fentaNYL 100 MCG/2 ML SDV ONE (16:59)
[2020-09-07] MEDS ORDERED: Ropivacaine HCl/PF 100 ML ONE (17:00)
--- NOTE | 2020-09-07 17:51 | PCM.PREANE ---
Preanesthetic Assessment - Procedure Proposed Procedure: CLE[facility]ATRA - Anesthesia/Transfusion/Family Hx Anesthesia History: Prior Anesthesia Without Reaction Family History of Anesthesia Reaction: No Transfusion History: No Prior Transfusion(s) - Review of Systems General: No Symptoms Pulmonary: No Symptoms Cardiovascular: Other (Late stage HTN.) Gastrointestinal: Nausea Neurological: No Symptoms Other: Reports: None, Anxiety - Physical Assessment NPO Status Date: 09/07/20 NPO Status Time: 17:00 (Clear Liquids) Height: 1.6 m Weight: 63.957 kg ASA Class: 2 Mental Status: Alert & Oriented x3 Airway Class: Mallampati = 1 Dentition: Reports: Normal Dentition Thyro-Mental Finger Breadths: 3 Mouth Opening Finger Breadths: 3 ROM/Head Extension: Full Lungs: Clear to Auscultation Cardiovascular: Regular Rate - Lab Values: Laboratory Last Values WBC 19.37 K/uL (4.0-11.0) H 09/07/20 16:10 RBC 4.28 M/uL (4.30-5.90) L 09/07/20 16:10 Hgb 13.8 g/dL (12.0-16.0) 09/07/20 16:10 Hct 40.3 % (36.0-46.0) 09/07/20 16:10 MCV 94.2 fL (80.0-98.0) 09/07/20 16:10 MCH 32.2 pg (27.0-32.0) H 09/07/20 16:10 MCHC 34.2 g/dL (31.0-37.0) 09/07/20 16:10 RDW Std Deviation 44.5 fl (28.0-62.0) 09/07/20 16:10 RDW Coeff of [place] 13 % (11.0-15.0) 09/07/20 16:10 Plt Count 223 K/uL (150-400) 09/07/20 16:10 MPV 13.40 fL (7.40-12.00) H 09/07/20 16:10 Nucleated RBC % 0.0 /100WBC 09/07/20 16:10 Nucleated RBCs # 0 K/uL 09/07/20 16:10 Blood Type B POSITIVE 09/07/20 16:10 Antibody Screen NEGATIVE 09/07/20 16:10 - Allergies Allergies/Adverse Reactions: Allergies Allergy/AdvReac Type Severity Reaction Status Date / Time Penicillins Allergy Hives Verified 04/29/20 15:46 - Blood Blood Available: No Product(s) Available: None - Anesthesia Plan Pre-Op Medication Ordered: None - Acknowledgements Anesthesia Type Planned: Epidural Pt an Appropriate Candidate for the Planned Anesthesia: Yes Alternatives and Risks of Anesthesia Discussed w Pt/Guardian: Yes Pt/Guardian Understands and Agrees with Anesthesia Plan: Yes Additional Comments: 41 weeks, 3 cm, active labor, late stage HTN. Discussed, ? answered, permit signed, wishes to proceed. 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: Musculoskeletal History: Reports: Fracture Neurological History: Reports: Headaches, Chronic Psychiatric History: Reports: Anxiety Endocrine/Metabolic History: Reports: None Hematologic History: Reports: None Oncologic (Cancer) History: Reports: None Dermatologic History: Reports: None - Infectious Disease History Infectious Disease History: Reports: Chicken Pox - Past Surgical History HEENT Surgical History: Reports: Other (See Below) Other HEENT Surgeries/Procedures: teeth extractions GI Surgical History: Reports: None Female Surgical History: Reports: None Musculoskeletal Surgical History: Reports: None - SUBSTANCE USE Tobacco Use Status *Q: Current Every Day Tobacco User Tobacco Use Within Last Twelve Months: Cigarettes Second Hand Smoke Exposure: Yes Recreational Drug Use History: No - HOME MEDS Home Medications: Home Meds Acetaminophen/HYDROcodone [Galt 325-5 MG] 1 tab PO Q6H #3 tablet 04/29/20 [Rx] Nitrofurantoin Monohyd/M-Cryst [Macrobid 100 mg Capsule] 100 mg PO BID 5 Days #10 capsule 04/29/20 [Rx] Ondansetron [Zofran ODT] 4 mg PO Q6H PRN #8 tab.dis 04/29/20 [Rx] Pnv No.95/Ferrous Fum/Folic AC [ Caplet] 1 cap PO DAILY 04/29/20 [History] - CURRENT (IN HOUSE) MEDS Current Meds: Current Medications Butorphanol Tartrate (Butorphanol 1 Mg/Ml Sdv) 1 mg IVPUSH Q1H PRN PRN Reason: Pain Carboprost Tromethamine (Carboprost Tromethamine 250 Mcg/1 Ml Amp) 250 mcg IM ASDIRECTED PRN PRN Reason: Post Hemorrhage Oxytocin/Sodium Chloride (Oxytocin 30 Unit/500 Ml-Ns) 30 unit in 500 mls @ 500 mls/hr IV TITRATE [facility] Tranexamic Acid 1,000 mg/ (Sodium Chloride) 110 mls @ 660 mls/hr IV ONETIME PRN PRN Reason: Bleeding Lactated Ringer's (Ringers, Lactated) 1,000 mls @ 150 mls/hr IV ASDIRECTED [facility] Last Admin: 09/07/20 17:26 Dose: 500 mls/hr Documented by: Lidocaine HCl (Lidocaine 1% 50 Ml Mdv) 50 ml INJECT ONETIME PRN PRN Reason: Laceration repair Methylergonovine Maleate (Methylergonovine 0.2 Mg/1 Ml Amp) 0.2 mg IM ASDIRECTED PRN PRN Reason: Post Hemorrhage Misoprostol (Misoprostol 200 Mcg Tab) 200 mcg PO ONETIME PRN PRN Reason: Post Hemorrhage Nalbuphine HCl (Nalbuphine 10 Mg/1 Ml Vial) 10 mg IVPUSH Q1H PRN PRN Reason: Pain (severe 7-10) Sodium Chloride (Sodium Chloride 0.9% 10 Ml Syringe) 10 ml FLUSH ASDIRECTED PRN PRN Reason: Keep Vein Open Sodium Chloride (Sodium Chloride 0.9% 2.5 Ml Syringe) 2.5 ml FLUSH ASDIRECTED PRN PRN Reason: Keep Vein Open Sodium Chloride (Sodium Chloride 0.9% 10 Ml Sdv) 10 ml IV ASDIRECTED PRN PRN Reason: IV Use Sterile Water (Water For Irrigation,Sterile 1,000 Ml Container) 1,000 ml IRR ASDIRECTED PRN PRN Reason: delivery Discontinued Medications Fentanyl (Fentanyl 100 Mcg/2 Ml Sdv) Confirm Administered Dose 100 mcg .ROUTE .[facility] ONE Stop: 09/07/20 17:00 Ropivacaine (Naropin 0.2%) Confirm Administered Dose 100 mls @ as directed .ROUTE .[facility] ONE Stop: 09/07/20 17:01 Ropivacaine (Ropivacaine 0.2% Pf 2 Mg/Ml 20 Ml Sdv) Confirm Administered Dose 20 ml .ROUTE [facility] ONE Stop: 09/07/20 17:00
--- NOTE | 2020-09-07 22:06 | PCM.SN.2 ---
- Free Text/Narrative Note: Called for standby for vacuum delivery. CLEOPATRA functioning well. 21:40-21:55
[2020-09-07] MEDS ORDERED: Benzocaine/Menthol 20%-0.5% Spray 78 GM Cannister TOP PRN (22:15)
[2020-09-07] MEDS ORDERED: Ibuprofen 800 MG Tab PO PRN (22:15)
[2020-09-07] MEDS ORDERED: Witch Hazel Medicated Pads 40/Jar TOP PRN (22:15)
[2020-09-07] MEDS ORDERED: Lanolin 100% Cream 7 GM Tube TOP PRN (22:15)
[2020-09-07] MEDS ORDERED: Acetaminophen 500 MG Tab PO PRN ×2 (22:15)
[2020-09-07] MEDS ORDERED: Bisacodyl 10 MG Supp RECTAL PRN (22:15)
[2020-09-07] MEDS ORDERED: oxyCODONE 5 MG Tab PO PRN (22:15)
[2020-09-07] MEDS ORDERED: Docusate Sodium 100 MG Cap PO PRN (22:15)
[2020-09-07] MEDS ORDERED: Ibuprofen 400 MG Tab PO PRN (22:15)
--- NOTE | 2020-09-08 08:25 | PCM48HPAN ---
Post Anesthesia Note - EVALUATION WITHIN 48HRS OF ANESTHETIC Vital Signs in Normal Range: Yes Patient Participated in Evaluation: Yes Respiratory Function Stable: Yes Airway Patent: Yes Cardiovascular Function Stable: Yes Hydration Status Stable: Yes Pain Control Satisfactory: Yes Nausea and Vomiting Control Satisfactory: Yes Mental Status Recovered: Yes Vital Signs: Last Vital Signs Temp 36.7 C 09/08/20 04:20 Pulse 98 09/08/20 04:20 Resp 20 09/08/20 04:20 BP 151/88 H 09/08/20 04:20 Pulse Ox 99 09/08/20 04:20 - COMMENTS/OBSERVATIONS Free Text/Narrative:: Doing well. Leaving, infant transferred.
--- NOTE | 2020-09-08 09:54 | OR ---
SURGEON: Michael Braun MD DATE OF PROCEDURE: 09/07/2020 Ms. Orantes is a 35-year-old patient. She is primigravida. She was followed in our clinic primarily by our nurse lieutenant firefighter service. She is 41 weeks. She was supposed to be scheduled for elective induction tomorrow, however, the patient today presented in active labor. Her GBS status was negative. Her diabetes screen was negative. At the time of the admission, the patient had regular contractions and she was 4 cm, complete, vertex, and -1 station. She had rupture of the membrane, which showed +2 to +3 meconium. The patient progressed spontaneously. She had epidural anesthesia for labor analgesia. She became complete-complete, vertex, +1 station at 7 o'clock. She commenced to push for 2.5 hours. The patient was exhausted. There was variable deceleration at the end of the labor process. After consultation with the patient and her and obtaining consent, she consented for a vacuum extraction. A Kiwi vacuum extraction was performed. The Respiratory Service and mat inspector were in attendance. With 2 pulls and the patient pushing, I was able to accomplish vaginal delivery of a male fetus. Cried immediately. The scores and the weight are not available at the time of the dictation. Thick meconium was noted. There was no nuchal cord. The placenta delivered spontaneous, complete, and intact. There was first-degree perineal laceration, repaired with 3-0 Vicryl in the usual manner. Estimated blood loss was 300 to 350 mL. heart rate was category 1 through the entire process of labor. There was no complication in the labor and delivery process of this patient. ALEJA / ANI /[id number]
== END 2020-09-08 04:45 | disposition home or self-care (01) | DRG 807 ==
LOC: MW.OBCHECK 13:11 → MW.OB 15:31 → OBSVTOIN 22:15 → MW.OB 09-08 01:08
PROVIDERS: ADMIT Obstetrics & Gynecology; ATTEND Obstetrics & Gynecology
PROC: 10D07Z6 Extraction of Products of Conception, Vacuum, Via Natural or Artificial Opening (ICD-10-PCS; principal; 2020-09-07)
PROC: 0HQ9XZZ Repair Perineum Skin, External Approach (ICD-10-PCS; 2020-09-07)
PROC: 3E0R3BZ Introduction of Anesthetic Agent into Spinal Canal, Percutaneous Approach (ICD-10-PCS; 2020-09-07)
PROC: 00HU33Z Insertion of Infusion Device into Spinal Canal, Percutaneous Approach (ICD-10-PCS; 2020-09-07)
DX: O48.0 Post-term pregnancy (principal); Z37.0 Single live birth; Z3A.41 41 weeks gestation of pregnancy; O77.0 Labor and delivery complicated by meconium in amniotic fluid; O70.0 First degree perineal laceration during delivery
CPT/HCPCS: 36415; 51702; 59025; 59409; 85027; 86592; 86850; 86900; 86901; A9270-GY; J2590; J2795; J3010; J7120; U0002